=== PATIENT | male | born 1990 | race African-American/Black ===

== ENCOUNTER 2017-03-11 06:01 | Emergency (ER) | payer SELFPAY ==
[2017-03-11 06:08] VITALS: BP 157/83
[2017-03-11] MEDS ORDERED: AZITHROMYCIN 1 GM SUSP PACKET PO ONE (06:27)
[2017-03-11] MEDS ORDERED: CEFTRIAXONE INJ 250 MG VIAL IM ONE (06:27)
[2017-03-11] MEDS ORDERED: LIDOCAINE 1% INJ-PF (10 MG/ML) 30 ML SDV INFIL ONE (06:27)
--- NOTE | 2017-03-11 07:00 | ER Document Report ---
ED General - General Chief Complaint: Penile Discharge Stated Complaint: PENILE DISCHARGE Time Seen by Provider: 03/11/17 06:27 Notes: The patient is a 26-year-old male who presents with penile discharge and concern about STDs. In addition, he has had a swelling on his left heel since 2011 after he was in the [employer]. He would like to be treated for STDs today. He denies testicular pain, penile rash, fevers, diarrhea, constipation or heel injury. TRAVEL OUTSIDE OF THE [place] IN LAST 30 DAYS: No - Related Data Allergies/Adverse Reactions: No Known Allergies Allergy (Verified 03/11/17 06:02) Past Medical History - General Information source: Patient - Social History Smoking Status: Unknown if Ever Smoked Family History: Reviewed & Not Pertinent Review of Systems - Review of Systems Notes: REVIEW OF SYSTEMS: CONSTITUTIONAL: -fevers, -chills EENT: -eye pain, -difficulty swallowing, -nasal congestion CARDIOVASCULAR:-chest pain, -syncope. RESPIRATORY: -cough, -SOB GASTROINTESTINAL: -abdominal pain, - nausea, -vomiting, -diarrhea GENITOURINARY: -dysuria, -hematuria, +penile discharge MUSCULOSKELETAL: +left heel pain, -back pain, -neck pain SKIN: -rash or skin lesions. HEMATOLOGIC: -easy bruising or bleeding. LYMPHATIC: -swollen, enlarged glands. NEUROLOGICAL: -altered mental status or loss of consciousness, -headache, - neurologic symptoms PSYCHIATRIC: -anxiety, -depression. ALL OTHER SYSTEMS REVIEWED AND NEGATIVE. Physical Exam - Vital signs Vitals: Temp Pulse Resp BP Pulse Ox 99.2 F 95 18 157/83 H 97 03/11/17 06:06 03/11/17 06:06 03/11/17 06:06 03/11/17 06:06 03/11/17 06:06 - Notes Notes: PHYSICAL EXAMINATION: GENERAL: Well-appearing, well-nourished and in no acute distress. HEAD: Atraumatic, normocephalic. EYES: Pupils equal round and reactive to light, extraocular movements intact, sclera anicteric, conjunctiva are normal. ENT: nares patent, oropharynx clear without exudates. Moist mucous membranes. NECK: Normal range of motion, supple without lymphadenopathy LUNGS: Breath sounds clear to auscultation bilaterally and equal. No wheezes rales or rhonchi. HEART: Regular rate and rhythm without murmurs ABDOMEN: Soft, nontender, normoactive bowel sounds. No guarding, no rebound. No masses appreciated. : Clear penile discharge. No lesions or testicular pain or swelling. No inguinal lymphadenopathy. EXTREMITIES: Callus on left heel, non-tender. Normal range of motion, no pitting or edema. No cyanosis. NEUROLOGICAL: Cranial nerves grossly intact. Normal speech, normal gait. Normal sensory and motor exams. PSYCH: Normal mood, normal affect. Course - Re-evaluation Re-evalutation: Patient has had a left heel callus since 2011 since being in the [employer]. Instructed him to follow-up with podiatry for this chronic issue. Patient also wanted to be treated for gonorrhea and chlamydia and will call later in the day for his results. Instructed him to always use a condom. - Vital Signs Vital signs: Temp Pulse Resp BP Pulse Ox 99.2 F 95 18 157/83 H 97 03/11/17 06:06 03/11/17 06:06 03/11/17 06:06 03/11/17 06:06 03/11/17 06:06 Discharge - Discharge Clinical Impression: Urethritis, Callus Condition: Stable Disposition: HOME, SELF-CARE Additional Instructions: You must go to the digital camera technician to discuss management of your heel callus. Make sure you are wearing clean socks. Go to the health department for further testing and treatment of any STDs. Always wear a condom. Call [phone] later today after noon for the results of your gonorrhea and chlamydia results. You must inform your partners if you are positive. Urethritis You have urethritis, an infection of the urethra. The usual symptoms are pain on urination and discharge. The infection is often caused by gonorrhea or chlamydia. Treatment is antibiotics. In addition, any sexual contacts should be evaluated by a physician as soon as possible. As this infection can be transmitted sexually, refrain from sexual activity until the infection is confirmed as healed by your physician. If gonorrhea or chlamydia is found on culture, the health department must be notified. Call the doctor at once if you develop difficulty passing your urine, high fever, rash, joint swelling, or other new symptoms. Forms: Elevated Blood Pressure Referrals: RAYA LYNN DPM [ACTIVE STAFF] - Follow up as needed
[2017-03-11 09:05] LABS: CHLAM PCR NOT DETECTED (NOT DETECT)
== END 2017-03-11 07:40 | disposition home or self-care (01) ==
LOC: ER 06:01
DX: N34.2 Other urethritis (principal); L84 Corns and callosities; R36.9 Urethral discharge, unspecified; M79.672 Pain in left foot
CPT/HCPCS: 99283; 96372; 87491; 87591; J3490; Q0144; J0696

== ENCOUNTER 2017-04-02 09:52 | Day surgery (SDC) | payer BC ==
[2017-04-02] MEDS ORDERED: MIDAZOLAM 2 MG/2 ML INJ ONE (11:49)
[2017-04-02] MEDS ORDERED: FENTANYL CITRATE INJ/PF 100 MCG/2 ML AMPUL ONE (11:49)
[2017-04-02] MEDS ORDERED: PROPOFOL INJ 200 MG/20 ML VIAL IV ONE (11:50)
[2017-04-02] MEDS ORDERED: BACITRACIN INJ 50,000 UNIT VIAL ONE (12:06)
[2017-04-02] MEDS ORDERED: BUPIVACAINE HCL 0.5 % INJ/PF 30 ML SDV ONE (12:06)
[2017-04-02] MEDS ORDERED: NORMAL SALINE INJ/PF 0.9% 10 ML SDV ONE (12:06)
[2017-04-02] MEDS ORDERED: LIDOCAINE 2% INJ (20 MG/ML) 20 ML MDV ONE (12:06)
[2017-04-02] MEDS ORDERED: POLYMYXIN B SULFATE INJ 500000 UNIT VIAL ONE (12:06)
--- NOTE | 2017-04-02 14:18 | SURGICARE OPERATIVE REPORT E ---
[facility] [place] Operative Report NAME: BRENDA CRUZ AGE: 26Y DATE OF SURGERY: 04/02/2017 ROOM: PREOPERATIVE DIAGNOSIS: SOFT TISSUE MASS OF THE POSTEROMEDIAL ASPECT OF THE LEFT HEEL. POSTOPERATIVE DIAGNOSIS: SOFT TISSUE MASS OF THE POSTEROMEDIAL ASPECT OF THE LEFT HEEL WITH PROBABLE INCLUSION CYST. SURGEON: MILLA KABA DPM PRINCIPAL SYSTEMS ARCHITECT: Renee Nowak DPM. PROCEDURE: On 04/02/17, patient admitted to [facility] [place] with complaint of a painful swelling on the back of his left heel. The patient was taken to the operating room, where following induction of IV sedation with local anesthesia, patient's left foot and leg were prepped and draped in a sterile manner. The tourniquet was placed across the proximal ankle malleoli. Esmarch was applied. Tourniquet was inflated to the level of 250 mmHg. Esmarch was removed. Sterile draping completed and the following procedure performed. Attention was directed to the posterior aspect of the patient's left heel, where a 3-cm linear incision was placed perpendicular to the long axis of the Achilles tendon and below the insertion of the Achilles tendon and on the more medial aspect of the heel. It was deepened through the subcutaneous tissue and superficial fascia. All bleeding vessels were clamped and ligated or Bovied as necessary for hemostasis. Incision further deepened via sharp and blunt dissection, thus revealing a well-circumcised white glistening mass. The inclusion cyst was then freed from its surrounding soft tissue attachments and removed in toto. The cyst measured 2 x 1.5 x 1 cm in dimensions. At that time, the area was flushed with copious amounts of sterile antibiotic solution. Inspected the remaining soft tissue for bleeding, with none being noted. The incision was then coapted and maintained with interrupted horizontal mattress suture of 4-0 nylon. Sterile dressing consisting of Karl silk, 4 x 4's, fluff, Remy, Kerlix and Coban was applied to patient's left foot. Tourniquet was deflated. Capillary filling time was spontaneous to all digits. Patient tolerated surgery and anesthesia well, and was taken to the recovery room for further monitoring by the Anesthesia Department. DICTATING PHYSICIAN: MILLA KABA DPM [id number] PHY#: [id number] ID: [id number] JOB#: [id number] ACCT: [id number] cc:MILLA KABA DPM >
== END 2017-04-02 14:35 | disposition home or self-care (01) ==
LOC: SC 09:52
PROVIDERS: ATTEND Preventive Medicine Undersea and Hyperbaric Medicine
PROC: 0JBR0ZZ Excision of Left Foot Subcutaneous Tissue and Fascia, Open Approach (ICD-10-PCS; principal; 2017-04-02 11:15)
DX: D21.22 Benign neoplasm of connective and other soft tissue of left lower limb, including hip (principal)
CPT/HCPCS: 88342 ×2; 88341 ×2; 88305 ×2; 28041; J2250; J3490 ×4; J3010; J2704; 400

== ENCOUNTER 2018-03-19 14:25 | Emergency (ER) | payer BC ==
[2018-03-19] MEDS ORDERED: NORMAL SALINE 1000 ML 1,000 ML IV ONE (15:50)
[2018-03-19] MEDS ORDERED: KETOROLAC TROMETHAMINE INJ/PF 30 MG/1 ML SDV IV ONE (15:50)
[2018-03-19] MEDS ORDERED: PROCHLORPERAZINE EDISYLATE INJ 10 MG/2 ML VIAL IV ONE (15:50)
[2018-03-19] MEDS ORDERED: LIDOCAINE 5% (700 MG) TRANSDERMAL ADH..PATCH TP ONE (15:50)
[2018-03-19] MEDS ORDERED: DIPHENHYDRAMINE HCL 50 MG/ML VIAL IV ONE (15:50)
--- NOTE | 2018-03-19 15:54 | ER Document Report ---
HPI - HPI Patient complains to provider of: Headache, left shoulder pain Time Seen by Provider: 03/19/18 15:25 Onset: This morning Onset/Duration: Gradual Quality of pain: Achy Pain Level: 1 Context: Patient presents complaining of left shoulder and trapezius muscle tenderness since this morning. Patient states is possible that he may have slept on the area wrong. Patient denies any injury to the shoulder. Patient also reports headache pain off and on that started today. Patient denies any aggravating or alleviating factors. Patient denies nausea or vomiting. Patient denies any fever. No spinal tenderness. Associated Symptoms: Headache, Other - Left shoulder and back pain. denies: Fever, Nausea, Vomiting Exacerbated by: Movement Relieved by: Denies Similar symptoms previously: No Recently seen / treated by doctor: No - ROS ROS below otherwise negative: Yes Systems Reviewed and Negative: Yes All other systems reviewed and negative - CONSTITUTIONAL Constitutional: DENIES: Fever - NEURO Neurology: REPORTS: Headache. DENIES: Weakness, Vision blurred - CARDIOVASCULAR Cardiovascular: DENIES: Chest pain - RESPIRATORY Respiratory: DENIES: Trouble Breathing, Coughing - GASTROINTESTINAL Gastrointestinal: DENIES: Nausea, Patient vomiting - MUSCULOSKELETAL Musculoskeletal: REPORTS: Extremity pain - Left shoulder, Back Pain - Left upper back - DERM Skin Color: Normal Skin Problems: None Past Medical History - General Information source: Patient - Social History Smoking Status: Never Smoker Frequency of alcohol use: None Drug Abuse: None Occupation: [employer] Lives with: Family Family History: Reviewed & Not Pertinent - Medical History Medical History: Negative - Past Medical History Cardiac Medical History: Denies: Hx Heart Attack, Hx Hypertension Pulmonary Medical History: Denies: Hx Asthma Neurological Medical History: Denies: Hx Cerebrovascular Accident, Hx Seizures Renal/ Medical History: Denies: Hx Peritoneal Dialysis GI Medical History: Denies: Hx Hepatitis, Hx Hiatal Hernia, Hx Ulcer Infectious Medical History: Denies: Hx Hepatitis Past Surgical History: Reports: Hx Orthopedic Surgery Vertical Provider Document - CONSTITUTIONAL Agree With Documented VS: Yes Exam Limitations: No Limitations General Appearance: WD/WN, No Apparent Distress - INFECTION CONTROL TRAVEL OUTSIDE OF THE [place] IN LAST 30 DAYS: No - HEENT HEENT: Atraumatic, Normal ENT Exam, Normocephalic - NECK Neck: Normal Inspection, Supple, Other - No meningismus. negative: Lymphadenopathy-Left, Lymphadenopathy-Right - RESPIRATORY Respiratory: Breath Sounds Normal, No Respiratory Distress - CARDIOVASCULAR Cardiovascular: Regular Rate, Regular Rhythm, No Murmur Pulses: Normal: Radial - BACK Back: Abnormal Inspection - Left trapezius muscle tenderness, tenderness increases with extension of left upper extremity. negative: CVA Tenderness- Right, CVA Tenderness-Left - MUSCULOSKELETAL/EXTREMETIES Musculoskeletal/Extremeties: MAEW, FROM, Tender - Left shoulder joint tenderness with raising left arm above his head, no tenderness with abduction or extending arm out at 90 degrees, no dislocation or deformity, No Edema Notes: Normal skin color and temperature overlying joint - NEURO Level of Consciousness: Awake, Alert, Appropriate Motor/Sensory: No Motor Deficit - DERM Integumentary: Warm, Dry, No Rash Course - Re-evaluation Re-evalutation: 03/19/18 17:12 Patient sleeping, arouses easily to voice. Patient states shoulder pain is improved though states that the Lidoderm patch was very cold. Patient reports headache pain is resolved at this time. Patient feeling much better. The patient presents with headache without signs of LABEL REWINDER bleed, stroke, infection, or other serious etiology. The patient is neurologically intact. Given the extremely low risk of these diagnoses further testing and evaluation for these possibilities does not appear to be indicated at this time. The patient has been instructed to return if the symptoms worsen or change in any way. - Vital Signs Vital signs: Temp Pulse Resp BP Pulse Ox 98.6 F 73 14 135/88 H 99 03/19/18 14:27 03/19/18 14:27 03/19/18 14:27 03/19/18 14:27 03/19/18 14:27 Procedures - Immobilization Left Shoulder Pre-Proc Neuro Vasc Exam: Normal Immobilizer type: Sling Performed by: PCT Post-Proc Neuro Vasc Exam: Normal Alignment checked and good: Yes Discharge - Discharge Clinical Impression: Headache Qualifiers: Headache type: unspecified Headache chronicity pattern: unspecified pattern Intractability: not intractable Qualified Code(s): R51 - Headache Strain of left trapezius muscle Qualifiers: Encounter type: initial encounter Qualified Code(s): S46.812A - Strain of other muscles, fascia and tendons at shoulder and upper arm level, left arm, initial encounter Sprain of left shoulder Qualifiers: Encounter type: initial encounter Shoulder sprain type: unspecified sprain Qualified Code(s): S43.402A - Unspecified sprain of left shoulder joint, initial encounter Condition: Stable Disposition: HOME, SELF-CARE Instructions: Intravenous Compazine for Headaches ([facility]), Headache ([facility]), Intravenous (IV) Fluids ([facility]), Muscle Relaxers ([facility]), Muscle Strain ([facility]) Additional Instructions: Return immediately for any new or worsening symptoms Followup with your primary care provider, call tomorrow to make a followup appointment Follow-up with orthopedics for any persistent shoulder pain Prescriptions: Metaxalone [Skelaxin 800 mg Tablet] 800 mg PO ASDIR PRN #15 tablet PRN Reason: Naproxen [Naprosyn 250 Nmg Tablet] 1 tab PO BID #14 tablet Forms: Return to Work Referrals: [facility] [Provider Group] - Follow up as needed
[2018-03-19 17:46] VITALS: BP 130/81
== END 2018-03-19 17:44 | disposition home or self-care (01) ==
LOC: ER 14:25
DX: S46.812A Strain of other muscles, fascia and tendons at shoulder and upper arm level, left arm, initial encounter (principal); R51 Headache; M54.9 Dorsalgia, unspecified; X58.XXXA Exposure to other specified factors, initial encounter
CPT/HCPCS: 99283; 96361; 96374; 96375; J1200; J1885; J0780; J7030